=== PATIENT | female | born 1995 | race Caucasian/White ===

== ENCOUNTER 2019-02-23 09:53 | Observation (INO) ==
[2019-02-23] MEDS ORDERED: Ketorolac 15 MG/ML VIAL IVP PRN ×2 (12:06→18:14)
[2019-02-23] MEDS ORDERED: *HR* Promethazine 25 MG/ML VIAL IVP PRN ×2 (12:06→15:36)
[2019-02-23] MEDS ORDERED: Ondansetron 4 MG/2 ML VIAL IVP PRN ×2 (12:06→18:14)
[2019-02-23] MEDS ORDERED: Pantoprazole 40 MG VIAL IVP SCH (12:07)
[2019-02-23] MEDS ORDERED: cefOXitin 2,000 MG in Water for inj. (sterile) 20 ML IVP SCH ×3 (12:07→15:15)
[2019-02-23] MEDS ORDERED: 0.9 % Sodium Chloride 1,000 ML IVC SCH (12:15)
[2019-02-23] MEDS ORDERED: Isovue-300 50ML VIAL ONE (15:32)
[2019-02-23] MEDS ORDERED: Bupivacaine/EPI 1:200k 0.5%PF 30 ML VIAL ONE (15:32)
[2019-02-23] MEDS ORDERED: *HR* OxyCODONE Immed Rel 5 MG TABLET PO PRN (15:36)
[2019-02-23] MEDS ORDERED: *HR* Midazolam HCl 2 MG/2 ML VIAL ONE (15:36)
[2019-02-23] MEDS ORDERED: Ondansetron 4 MG/2 ML VIAL ONE (15:36)
[2019-02-23] MEDS ORDERED: Lidocaine -MPF 2% 2 ML VIAL ONE (15:36)
[2019-02-23] MEDS ORDERED: *HR* HYDROmorphone (PF) 1 MG/ML SYRINGE IVP PRN (15:36)
[2019-02-23] MEDS ORDERED: Gabapentin 300 MG CAPSULE PO ONE ×2 (15:36→16:00)
[2019-02-23] MEDS ORDERED: *HR* FentaNYL (PF) 100 MCG/2 ML VIAL ONE (15:36)
[2019-02-23] MEDS ORDERED: *HR* Propofol 200 MG/20 ML VIAL IVP ONE (15:36)
[2019-02-23] MEDS ORDERED: *HR* Rocuronium Bromide 50 MG/5 ML VIAL ONE (15:36)
[2019-02-23] MEDS ORDERED: *HR* Labetalol 20 MG/4 ML SYRINGE IVP PRN (15:36)
[2019-02-23] MEDS ORDERED: Dexamethasone 4 MG/ML VIAL ONE (15:36)
[2019-02-23] MEDS ORDERED: Acetaminophen IV 0 MG/0 ML INFUS..BTL ONE (15:40)
[2019-02-23] MEDS ORDERED: Lidocaine HCL 4 ML Topical Solution (Laryng-O-Jet Kit Sterile Pak) TP ONE (15:46)
[2019-02-23] MEDS ORDERED: *HR* Succinylcholine 200 MG/10 ML VIAL IVP ONE (16:35)
[2019-02-23] MEDS ORDERED: *HR* HYDROMORPHONE 2 MG/ML VIAL ONE (17:02)
[2019-02-23] MEDS ORDERED: *HR* PHENYLEPHRINE 1,000 MCG/10 ML SYRINGE IVP ONE (17:08)
[2019-02-23] MEDS ORDERED: Neostigmine Methylsulfate 3 MG/3 ML SYRINGE ONE ×2 (17:09→17:19)
[2019-02-23] MEDS ORDERED: Metoclopramide 10 MG/2 ML VIAL IVP ONE (21:36)
[2019-02-24] MEDS: cefOXitin 2,000 MG in Water for inj. (sterile) 20 ML IVP SCH ×2 (00:13→07:32)
[2019-02-24] MEDS: Metoclopramide 10 MG/2 ML VIAL IVP SCH ×2 (04:10→07:33)
[2019-02-24] MEDS ORDERED: Pantoprazole 40 MG VIAL IVP SCH (09:00)
[2019-02-24 10:51] VITALS: BP 114/68
[2019-02-24] MEDS ORDERED: Metoclopramide 10 MG/2 ML VIAL IVP SCH (12:00)
== END 2019-02-24 14:29 | disposition home or self-care (01) ==
LOC: 2ANU
PROVIDERS: ADMIT Surgery; ATTEND Surgery